=== PATIENT | female | born 1955 | race Caucasian/White ===

== ENCOUNTER → 2018-03-20 | Outpatient (CLI) | payer MEDICAID ==
--- NOTE | 2018-03-20 12:32 | XR ---
EXAMINATION TYPE: XR chest 2V DATE OF EXAM: 03/20/2018 COMPARISON: NONE HISTORY: Shortness of breath TECHNIQUE: Frontal and lateral views of the chest are obtained. FINDINGS: There is no focal air space opacity, pleural effusion, or pneumothorax seen. The cardiac silhouette size is within normal limits. The osseous structures are intact. Focal sclerosis is ques tioned of a pedicle of a lower thoracic vertebrae aren't on the lateral image. Slight pectus excavatu m deformity of the inferior sternum/psych void creates shadowing over the right middle lobe on the fr ontal view. IMPRESSION: 1. No acute cardiopulmonary process. 2. Slight sclerosis of the posterior lower thoracic pedicle that is nonspecific. Bone scan could eval uate for focal uptake.
== END | disposition home or self-care (01) ==
LOC: RADXRMAIN 12:05
PROVIDERS: ATTEND Family Medicine
DX: R06.2 Wheezing (principal)
CPT/HCPCS: 71046

== ENCOUNTER 2018-04-07 07:59 | Day surgery (SDC) | payer MEDICAID ==
[2018-04-04 12:05] VITALS: BMI 23.8
[~2018-04-07 07:59] MED LIST: LACTATED RINGERS 1,000 ML IV SCH
[2018-04-07 08:44] VITALS: RESP 18; TEMP 98.4
[2018-04-07] MEDS ORDERED: LIDOCAINE 1% 20 ML VIAL (10MG/ML) FOR IV START INTRADERMA ONE (08:48)
[2018-04-07] MEDS ORDERED: LIDOCAINE 1% INJ 10MG/ML (20 ML MDV) ONE (09:30)
[2018-04-07] MEDS ORDERED: PROPOFOL 10 MG/ML 20 ML VIAL IV ONE (09:30)
[2018-04-07 09:51] VITALS: PULSE 80
--- NOTE | 2018-04-07 10:01 | P.PCN ---
Date of Procedure: 04/07/18 Procedure(s) Performed: BRIEF HISTORY: Patient is a 62-year-old pleasant female, scheduled for an elective colonoscopy as a part of evaluation of intermittent rectal bleeding for the last 2 month duration. PROCEDURE PERFORMED: Colonoscopy With biopsy PREOPERATIVE DIAGNOSIS: Intermittent rectal bleeding of 2 months duration IV sedation per Anesthesia. PROCEDURE: After informed consent was obtained, the patient, was brought into the endoscopy unit. IV sedation was administered by Anesthesia under continuous monitoring. Digital rectal examination was normal. Initially the Olympus CF- 160 flexible video colonoscope was then inserted in the rectum, gradually advanced into the cecum without any difficulty. Careful examination was performed as the scope was gradually being withdrawn. Ileocecal valve and the appendiceal orifice were visualized and appeared normal. Prep was excellent. Mucosa of the cecum, ascending colon, transverse colon, descending colon appeared normal. There was mild mucosal erythema with granularity noted in the sigmoid colon and proximal rectum at 15-30 cm from the anal verge and multiple biopsies were done from this area. The distal rectum appeared normal. Retroflexion was performed in the rectum and no lesions were seen. The patient tolerated the procedure well. IMPRESSION: Mild colitis involving the sigmoid colon and proximal rectum with mucosal erythema and some friability status post biopsies to evaluate for inflammatory bowel disease Rest of the colon appeared normal RECOMMENDATIONS: Findings of this examination were discussed with the patient as well as a family. She was advised to follow with the biopsy results. She' ll be seen in the office in 2 weeks.
[2018-04-07 10:09] VITALS: BP 125/73
== END 2018-04-07 10:27 | disposition home or self-care (01) ==
LOC: ORWHC2ENDO 07:59
PROVIDERS: ATTEND Internal Medicine Gastroenterology
DX: K52.9 Noninfective gastroenteritis and colitis, unspecified (principal); K62.5 Hemorrhage of anus and rectum; E78.5 Hyperlipidemia, unspecified; F17.200 Nicotine dependence, unspecified, uncomplicated; M79.7 Fibromyalgia; K21.9 Gastro-esophageal reflux disease without esophagitis; Z79.1 Long term (current) use of non-steroidal anti-inflammatories (NSAID); Z79.899 Other long term (current) drug therapy; Z88.8 Allergy status to other drugs, medicaments and biological substances; Z88.6 Allergy status to analgesic agent; Z79.891 Long term (current) use of opiate analgesic
CPT/HCPCS: 88305; 45380; J2001; J2704

== ENCOUNTER → 2018-09-08 | Outpatient (CLI) | payer SELFPAY ==
[2018-09-08 07:25] LABS: Albumin 3.5 g/dL (3.5-5.0); Anion Gap 7 mmol/L; Carbon Dioxide 29 mmol/L (22-30); Chloride 99 mmol/L (98-107); Glucose 109 mg/dL (74-99); Potassium 3.9 mmol/L (3.5-5.1); Sodium 135 mmol/L (137-145); Total Protein 6.2 g/dL (6.3-8.2)
[2018-09-08 07:26] LABS: ALT 19 U/L (9-52); AST 14 U/L (14-36); Alkaline Phosphatase 85 U/L (38-126); Blood Urea Nitrogen 15 mg/dL (7-17); Calcium 8.7 mg/dL (8.4-10.2); Total Bilirubin 0.6 mg/dL (0.2-1.3)
[2018-09-08 07:28] LABS: Anisocytosis Slight; HCT 38.7 % (34.0-46.0); HGB 11.6 gm/dL (11.4-16.0); Hypochromasia Slight; MCH 25.5 pg (25.0-35.0); MCV 84.8 fL (80.0-100.0); Mean Platelet Volume 6.2; Platelet Count 411 k/uL (150-450); RBC 4.56 m/uL (3.80-5.40); RDW 16.1 % (11.5-15.5); WBC 9.2 k/uL (3.8-10.6)
[2018-09-08 09:53] LABS: Erythrocyte Sedimentation Rate 23 mm/hr (0-20)
--- NOTE | 2018-09-08 15:54 | CT ---
EXAMINATION TYPE: CT abdomen pelvis w con DATE OF EXAM: 09/08/2018 COMPARISON: 09/23/2009 INDICATION: Ulcerative rectosigmoiditis, blood in stool DLP: 920 mGycm, Automated exposure control for dose reduction was used. CONTRAST: 100 mL of Isovue 300. Study performed with Oral Contrast TECHNIQUE: Axial images were obtained from above the diaphragm to the pubic rami in the axial plane a t 5 mm thick sections. Reconstructed images are reviewed on the computer in the coronal plane. FINDINGS: Limited CT sections are obtained the lung bases. The lung bases are clear. CT ABDOMEN: Liver: Multiple scattered hypodensities are within the liver compatible with cysts. Spleen: Normal Pancreas: Normal Adrenal glands: There is some minimal thickening of the left adrenal gland compared to the right is 0 .9 cm. Gallbladder: Normal Kidneys: No masses are evident. No hydronephrosis is present. No cysts are present. Delayed images were obtained through the kidneys, which remain unremarkable. Aorta: Vascular calcification is within the aorta. Inferior vena cava: Normal. CT PELVIS: There is a suggestion of mild wall thickening within fecal debris filled descending colon. Descending colon appears prominent. Fecal debris is also within the ascending and transverse colon wall thicken ing. Sigmoid colon has a caliber. There may be some inflammatory change adjacent to the mid sigmoid c olon. Series 3 images 65 through 73. Appendix: Not visualized. No suspicious inflammatory changes or dilated tubular structures are eviden t. Urinary bladder: Normal. Genitourinary structures: Uterus and adnexal regions appear within normal limits. Osseous structures: No suspicious lytic or sclerotic lesions. Some pubic symphysitis is not excluded. Degenerative disc changes are at the L5-S1 level. IMPRESSIONS: 1. Prominent fecal debris filled descending colon with some mild wall thickening. Correlate for coli tis. 2. There are some inflammatory changes adjacent to the mid sigmoid colon. Consider acute diverticulit is within the differential. No abscess formation is evident. No free air is present. 3. Hepatic cysts. 4. Mild thickening of the left adrenal gland.
== END | disposition home or self-care (01) ==
LOC: RADCTMAIN 06:46
DX: K76.89 Other specified diseases of liver (principal); K51.30 Ulcerative (chronic) rectosigmoiditis without complications
CPT/HCPCS: 80053; 85652; 85027; 86140; 83993; 74177; 36415; Q9967

== ENCOUNTER → 2018-12-19 | Outpatient (CLI) | payer MEDICAID ==
[2018-12-19 11:51] LABS: Anisocytosis Slight; HCT 37.4 % (34.0-46.0); HGB 11.6 gm/dL (11.4-16.0); Hypochromasia Slight; MCH 26.3 pg (25.0-35.0); MCHC 31.1 g/dL (31.0-37.0); MCV 84.6 fL (80.0-100.0); Mean Platelet Volume 6.8; Platelet Count 290 k/uL (150-450); RBC 4.43 m/uL (3.80-5.40); RDW 16.7 % (11.5-15.5); WBC 11.3 k/uL (3.8-10.6)
[2018-12-19 14:40] LABS: Erythrocyte Sedimentation Rate 25 mm/hr (0-20)
== END ==
LOC: LABWHC1 10:18
PROVIDERS: ATTEND Internal Medicine Gastroenterology
DX: K51.30 Ulcerative (chronic) rectosigmoiditis without complications (principal)
CPT/HCPCS: 36415; 83993; 85027; 85652; 86140

== ENCOUNTER → 2019-01-31 | Outpatient (CLI) | payer MEDICAID ==
[2019-01-31 15:41] LABS: Basophils % (A) 0 %; Eosinophils % (A) 1 %; HCT 32.6 % (34.0-46.0); Hypochromasia Marked; Lymphocytes # (A) 0.6 k/uL (1.0-4.8); Lymphocytes % (A) 9 %; MCH 26.6 pg (25.0-35.0); MCHC 30.5 g/dL (31.0-37.0); MCV 87.1 fL (80.0-100.0); Mean Platelet Volume 6.8; Monocytes # (A) 0.2 k/uL (0-1.0); Monocytes % (A) 3 %; Neutrophils # (A) 5.3 k/uL (1.3-7.7); Neutrophils % (A) 87 %; Platelet Count 398 k/uL (150-450); RBC 3.74 m/uL (3.80-5.40); RDW 15.5 % (11.5-15.5); WBC 6.1 k/uL (3.8-10.6)
[2019-02-01 01:16] LABS: Hepatitis C IgG Antibody Reactive (Non-Reactive)
[2019-02-01 03:25] LABS: Albumin 3.7 g/dL (3.80-4.90); Albumin/Globulin Ratio 2.31 (1.60-3.17); Anion Gap 8.8 mmol/L (4.00-12.00); C Reactive Protein 0.9 mg/dL (0.0-0.8); Calcium 8.6 mg/dL (8.7-10.3); Carbon Dioxide 23.2 mmol/L (21.6-31.8); Globulin 1.6 g/dL (1.6-3.3); Potassium 4.2 mmol/L (3.5-5.5); Total Bilirubin 0.2 mg/dL (0.3-1.2); Total Protein 5.3 g/dL (6.2-8.2)
== END | disposition home or self-care (01) ==
LOC: LABWHC1 14:51
PROVIDERS: ATTEND Internal Medicine Gastroenterology
DX: K51.30 Ulcerative (chronic) rectosigmoiditis without complications (principal)
CPT/HCPCS: 36415; 80053; 85025; 86140; 86480; 86704; 86803; 87340; 87521

== ENCOUNTER 2019-09-11 23:09 | Inpatient (IN) | payer MEDICARE, BC ==
--- NOTE | 2019-09-12 00:08 | ED ---
Recheck HPI - General Chief Complaint: Recheck/Abnormal Lab/Rx Stated Complaint: low hemoglobin Time Seen by Provider: 09/11/19 23:23 Source: patient, EMS Mode of arrival: EMS Limitations: no limitations - History of Present Illness Initial Comments: This patient is a 64-year-old woman transferred here from [facility], for further evaluation and treatment of anemia and GI bleeding. The patient states that her mess cook had sent her to have some lab testing in the afternoon. She states she received a phone call few hours later telling her that she was anemic, with a hemoglobin of 6.2. The patient was directed to go to the local emergency department at [facility], where she was seen, the hemoglobin was rechecked and again found to be low. The patient had transfusion of 1 unit packed red blood cells, and transferred here. Patient also found to have Hemoccult positive stool. Further history reveals that the patient is not having any chest pain, abdominal pain, dyspnea, diaphoresis, palpitations, lightheadedness or syncope. She denies orthostatic symptoms. MD Complaint: abnormal lab -: hour(s) Returns Today for: Called Because of Abnormal Lab/Test Symptoms Since Prior Visit: no new symptoms Context: called for abnormal lab result Associated Symptoms: other (Fatigue) - Related Data Home Medications Medication Instructions Recorded Confirmed Atorvastatin [Lipitor] 10 mg PO HS 04/04/18 04/07/18 DULoxetine HCL [Cymbalta] 60 mg PO QAM 04/04/18 04/07/18 HYDROcodone/APAP 5-325MG [[place] 1 tab PO BID 04/04/18 04/07/18 5-325] Lansoprazole [Prevacid] 30 mg PO BID 04/04/18 04/07/18 Naproxen 500 mg PO BID 04/04/18 04/07/18 Ziprasidone [Geodon] 80 mg PO HS 04/04/18 04/07/18 buPROPion HCL [Wellbutrin XL] 300 mg PO QAM 04/04/18 04/07/18 Allergies Allergy/AdvReac Type Severity Reaction Status Date / Time lamotrigine [From Lamictal] Allergy Severe Jose Luis Verified 04/07/18 08:34 Brandt Syndrome celecoxib [From Celebrex] Allergy Nausea & Verified 04/07/18 08:34 Vomiting citalopram [From Celexa] Allergy Nausea & Verified 04/07/18 08:34 Vomiting Review of Systems ROS Statement: Those systems with pertinent positive or pertinent negative responses have been documented in the HPI. ROS Other: All systems not noted in ROS Statement are negative. Constitutional: Denies: fever, chills, weakness Respiratory: Denies: cough, dyspnea Cardiovascular: Denies: chest pain, palpitations, orthopnea, edema, syncope Gastrointestinal: Reports: constipation. Denies: abdominal pain, nausea, vom iting, diarrhea, melena, hematochezia Genitourinary: Denies: dysuria, hematuria Musculoskeletal: Denies: back pain Skin: Denies: rash Neurological: Denies: headache, weakness Hematological/Lymphatic: Denies: easy bleeding Past Medical History Past Medical History: Eye Disorder, Fibromyalgia, GERD/Reflux, Hyperlipidemia, Osteoarthritis (OA), Pneumonia Additional Past Medical History / Comment(s): Dry eyes, current rectal bleeding,collitis. History of Any Multi-Drug Resistant Organisms: None Reported Past Surgical History: Breast Surgery, Orthopedic Surgery, Tubal Ligation Additional Past Surgical History / Comment(s): Bilateral breast lumpectomies, bilateral carpal tunnel, left hand surgery. Past Anesthesia/Blood Transfusion Reactions: No Reported Reaction Past Psychological History: Bipolar, Depression Smoking Status: Current every day smoker Past Alcohol Use History: Rare Past Drug Use History: None Reported - Past Family History Mother Family Medical History: No Reported History Father Family Medical History: Cancer Additional Family Medical History / Comment(s): Throat cancer. General Exam Limitations: no limitations General appearance: alert, in no apparent distress Head exam: Present: atraumatic, normocephalic Eye exam: Present: normal appearance. Absent: scleral icterus, conjunctival injection ENT exam: Present: normal oropharynx Respiratory exam: Present: normal lung sounds bilaterally. Absent: respiratory distress, wheezes, rales, rhonchi, stridor Cardiovascular Exam: Present: regular rate, normal rhythm, normal heart sounds. Absent: systolic murmur, diastolic murmur, rubs, gallop GI/Abdominal exam: Present: soft. Absent: distended, tenderness, guarding, rebound, rigid Extremities exam: Present: normal inspection, normal capillary refill. Absent: pedal edema, calf tenderness Back exam: Present: normal inspection. Absent: CVA tenderness (R), CVA tenderness (L) Neurological exam: Present: alert Skin exam: Present: warm, dry, intact, normal color. Absent: rash Course Vital Signs 09/11/19 09/12/19 23:23 01:40 Temperature 99.1 F Pulse Rate 98 56 L Respiratory 18 16 Rate Blood Pressure 147/93 133/80 O2 Sat by Pulse 97 98 Oximetry Disposition Clinical Impression: Anemia, GI bleeding Disposition: ADMITTED IP TO THIS HOSP Condition: Fair Is patient prescribed a controlled substance at d/c from ED?: No Referrals: Gail Duvall MD [Primary Care Provider] - 1-2 days
[2019-09-12] MEDS ORDERED: NALOXONE 0.4 MG/ML 1 ML VIAL IV PRN (01:52)
[2019-09-12] MEDS ORDERED: ONDANSETRON 4 MG/2 ML VIAL IVP PRN (01:52)
[2019-09-12] MEDS ORDERED: ACETAMINOPHEN TAB 325 MG TAB PO PRN (01:52)
[2019-09-12] MEDS: SODIUM CHLORIDE 0.9% 1,000 ML IV SCH ×3 (02:24→22:51)
[2019-09-12 03:26] LABS: Anisocytosis Moderate; HGB 7.2 gm/dL (11.4-16.0); Hypochromasia Marked; MCH 19.3 pg (25.0-35.0); MCHC 27.8 g/dL (31.0-37.0); MCV 69.4 fL (80.0-100.0); Mean Platelet Volume 6.6; Microcytosis Marked; Platelet Count 420 k/uL (150-450); Poikilocytosis Moderate; RBC 3.75 m/uL (3.80-5.40); RDW 21.5 % (11.5-15.5); WBC 6.7 k/uL (3.8-10.6)
[2019-09-12 03:38] VITALS: RESP 18
[2019-09-12 07:03] LABS: Anisocytosis Moderate; HCT 26.9 % (34.0-46.0); HGB 7.4 gm/dL (11.4-16.0); Hypochromasia Marked; MCH 19.4 pg (25.0-35.0); MCHC 27.4 g/dL (31.0-37.0); MCV 70.8 fL (80.0-100.0); Mean Platelet Volume 6.7; Microcytosis Marked; Platelet Count 439 k/uL (150-450); Poikilocytosis Moderate; RBC 3.81 m/uL (3.80-5.40); RDW 21.4 % (11.5-15.5); WBC 6.5 k/uL (3.8-10.6)
[2019-09-12] MEDS ORDERED: HYDROcodone/APAP 5-325MG 1 EACH TAB PO PRN (08:30)
[2019-09-12] MEDS ORDERED: CYCLOBENZAPRINE 10 MG TAB PO PRN (08:30)
[2019-09-12] MEDS: DULoxetine HCL 60 MG CAPSULE.DR PO SCH ×2 (08:51→20:55)
[2019-09-12] MEDS: PANTOPRAZOLE 40 MG/10 ML VIAL IV SCH (08:52)
[2019-09-12] MEDS ORDERED: NON FORMULARY DRUG (Lansoprazole [Prevacid] 30 MG) PO SCH (09:00)
[2019-09-12 09:48] LABS: ALT 10 U/L (4-34); AST 18 U/L (14-36); African American GFR (CKD) >90 (>60 ml/min/1.73 sqM); Albumin 3.3 g/dL (3.5-5.0); Alkaline Phosphatase 56 U/L (38-126); Anion Gap 6 mmol/L; Blood Urea Nitrogen 14 mg/dL (7-17); Calcium 8.5 mg/dL (8.4-10.2); Carbon Dioxide 25 mmol/L (22-30); Chloride 106 mmol/L (98-107); Glucose 88 mg/dL (74-99); Non-African American GFR(CKD) >90 (>60 ml/min/1.73 sqM); Potassium 4.5 mmol/L (3.5-5.1); Sodium 137 mmol/L (137-145); Total Bilirubin 0.5 mg/dL (0.2-1.3)
[2019-09-12] MEDS: buPROPion XL 300 MG TAB.ER.24H PO SCH (10:08)
[2019-09-12] MEDS: ZIPRASIDONE 60 MG CAP PO SCH ×2 (10:08→20:55)
--- NOTE | 2019-09-12 10:48 | P.HPIM ---
History of Present Illness H&P Date: 09/12/19 Chief Complaint: Low hemoglobin This is a 64-year-old female patient of Dr. Duvall. Patient presented with abnormal lab values. Patient reports that she's been having increased fatigue over the past few months and a feeling of heart palpitations so she was seen by her malt house supervisor who Center for lab testing and she received a call that her hemoglobin was low and she proceeded to [facility]. Patient received 1 unit PRBCs at [place] and transfer to [facility] for further evaluation. Patient states that approximately 1 year ago she underwent scope wi th Dr. Liu was diagnosed with ulcerative colitis. Patient denies any recent episodes of diarrhea does report some abdominal cramping. Patient states she did have constipation occurring over the past week but did have normal BMs this a.m. Additional medical history includes fibromyalgia, GERD, hyperlipidemia, osteoporosis, pneumonia, bipolar, depression and current every day smoker. At this time patient denies chest pain or shortness breath. Patient denies nausea vomiting or diarrhea. Denies urinary burning or frequency. Current hemoglobin level 7.4. GI services have a consulted Review of Systems Please refer to HPI otherwise unremarkable Past Medical History Past Medical History: Eye Disorder, Fibromyalgia, GERD/Reflux, Hyperlipidemia, Osteoarthritis (OA), Pneumonia Additional Past Medical History / Comment(s): Dry eyes, current rectal bleeding,collitis. History of Any Multi-Drug Resistant Organisms: None Reported Past Surgical History: Breast Surgery, Orthopedic Surgery, Tubal Ligation Additional Past Surgical History / Comment(s): Bilateral breast lumpectomies, bilateral carpal tunnel, left hand surgery. Past Anesthesia/Blood Transfusion Reactions: No Reported Reaction Past Psychological History: Bipolar, Depression Smoking Status: Current every day smoker Past Alcohol Use History: Rare Additional Past Alcohol Use History / Comment(s): Has been smoking 50 yrs, 1 PPD, down to less than 1 PPD now. Past Drug Use History: None Reported - Past Family History Mother Family Medical History: Dementia Father Family Medical History: Cancer Additional Family Medical History / Comment(s): Throat cancer. Medications and Allergies Home Medications Medication Instructions Recorded Confirmed Type Atorvastatin [Lipitor] 10 mg PO HS 04/04/18 09/12/19 History DULoxetine HCL [Cymbalta] 60 mg PO BID 04/04/18 09/12/19 History HYDROcodone/APAP 5-325MG [[place] 1 tab PO BID PRN 04/04/18 09/12/19 History 5-325] Lansoprazole [Prevacid] 30 mg PO BID 04/04/18 09/12/19 History buPROPion HCL [Wellbutrin XL] 300 mg PO QAM 04/04/18 09/12/19 History Adalimumab [Humira Pediatric] 40 mg SQ Q14D 09/12/19 09/12/19 History Balsalazide Disodium 2,250 mg PO TID 09/12/19 09/12/19 History Cyclobenzaprine [Flexeril] 10 mg PO DAILY PRN 09/12/19 09/12/19 History Dicyclomine [Bentyl] 10 mg PO TID 09/12/19 09/12/19 History Ziprasidone [Geodon] 60 mg PO BID 09/12/19 09/12/19 History Allergies Allergy/AdvReac Type Severity Reaction Status Date / Time lamotrigine [From Lamictal] Allergy Severe Jose Luis Verified 09/12/19 08:01 Brandt Syndrome celecoxib [From Celebrex] Allergy Nausea & Verified 09/12/19 08:01 Vomiting citalopram [From Celexa] Allergy Nausea & Verified 09/12/19 08:01 Vomiting Physical Exam Vitals: Vital Signs Temp Pulse Pulse Resp BP BP Pulse Ox 09/12/19 08:45 98.6 F 98 18 130/76 95 09/12/19 03:10 98.6 F 96 18 147/77 96 09/12/19 01:40 56 L 16 133/80 98 09/11/19 23:23 99.1 F 98 18 147/93 97 Intake and Output 09/11/19 09/12/19 09/12/19 22:59 06:59 14:59 Intake Total 270 Balance 270 Intake: Intake, IV Titration 270 Amount Sodium Chloride 0.9% 1, 270 000 ml @ 90 mls/hr IV . Q11H7M [facility] Rx#:[id number] Other: Voiding Method Toilet # Voids 1 Weight 53 kg Head normocephalic Neck supple Lungs clear to auscultation bilaterally no wheezing or crackles Heart regular rate and rhythm S1-S2, no rub or gallop Abdomen is soft nontender nondistended positive bowel sounds no hepatosplenomegaly Extremities no edema Neuro alert and orientated to 3 Results CBC & Chem 7: 09/12/19 06:32 09/12/19 08:51 Labs: Abnormal Lab Results - Last 24 Hours (Table) 09/12/19 09/12/19 09/12/19 Range/Units 02:33 06:32 08:51 RBC 3.75 L (3.80-5.40) m/uL Hgb 7.2 L 7.4 L (11.4-16.0) gm/dL Hct 26.0 L 26.9 L (34.0-46.0) % MCV 69.4 L 70.8 L (80.0-100.0) fL MCH 19.3 L 19.4 L (25.0-35.0) pg MCHC 27.8 L 27.4 L (31.0-37.0) g/dL RDW 21.5 H 21.4 H (11.5-15.5) % Total Protein 6.0 L (6.3-8.2) g/dL Albumin 3.3 L (3.5-5.0) g/dL Thrombosis Risk Factor Assmnt - Choose All That Apply Any of the Below Risk Factors Present?: No Other Risk Factors: Yes Each Risk Factor Represents 2 Points: Age 61-74 years Other congenital or acquired thrombophilia - If yes, enter type in comment: No Thrombosis Risk Factor Assessment Total Risk Factor Score: 2 Thrombosis Risk Factor Assessment Level: Low Risk Assessment and Plan Assessment: 1. Anemia secondary to GI bleed with positive stool occult. She received 1 unit PRBCs for hemoglobin is 6.2 at [facility]. GI services have been consulted. Current hemoglobin level 7.4. Maintain on IV Protonix 2. History of ulcerative colitis. Patient does follow with GI services previously underwent colonoscopy in January 2018 3. History of bipolar depression. Home medications resumed 4. History of fibromyalgia 5. History of GERD 6. History of pneumonia 7. History of nicotine dependence. Patient educated greater then 3 min on smoking cessastion. Nicotine patch ordered DVT prophylaxis SCDs due to positive occult anemia. GI Proflex Protonix Time with Patient: Greater than 30 (Greater than 60% of the total time spent in counseling and coordination of care. I performed an examination of the patient and discussed their management with the Nurse Practitioner. I have reviewed the Nurse Practitioner's notes and agree with the documented findings and plan of care)
[2019-09-12 14:27] LABS: Anisocytosis Moderate; HCT 25.9 % (34.0-46.0); HGB 7.2 gm/dL (11.4-16.0); Hypochromasia Marked; MCH 19.9 pg (25.0-35.0); MCV 70.9 fL (80.0-100.0); Mean Platelet Volume 7.3; Microcytosis Marked; Platelet Count 419 k/uL (150-450); Poikilocytosis Moderate; RBC 3.65 m/uL (3.80-5.40); RDW 21.6 % (11.5-15.5); WBC 5.3 k/uL (3.8-10.6)
[2019-09-12] MEDS ORDERED: HUMIRA 40 MG/0.4 ML SQ SCH (18:00)
[2019-09-12 20:04] LABS: Anisocytosis Moderate; HCT 26.9 % (34.0-46.0); HGB 7.4 gm/dL (11.4-16.0); Hypochromasia Marked; MCH 19.9 pg (25.0-35.0); MCHC 27.5 g/dL (31.0-37.0); MCV 72.2 fL (80.0-100.0); Mean Platelet Volume 7.1; Microcytosis Marked; Platelet Count 437 k/uL (150-450); Poikilocytosis Moderate; RBC 3.73 m/uL (3.80-5.40); RDW 21.6 % (11.5-15.5); WBC 6.6 k/uL (3.8-10.6)
[2019-09-12] MEDS ORDERED: ATORVASTATIN 10 MG TAB PO SCH (21:00)
--- NOTE | 2019-09-13 05:25 | CONS ---
CONSULTATION DATE OF SERVICE: 09/12/2019 REASON FOR CONSULTATION: Severe symptomatic anemia and history of ulcerative colitis. HISTORY OF PRESENTING ILLNESS: The patient is a 64-year-old pleasant white female admitted to the hospital because of severe symptomatic anemia with a hemoglobin of 7 g/dL and received one unit of PRBC transfusion. Patient is known to me from her previous office visit. She was diagnosed with ulcerative colitis approximately a year ago and she was steroid dependent and hence she was started on Humira injections in May of this year. The patient has been taking Humira every 2 weeks, the last dose was today. She has been steroid dependent in the past, but she has been off the steroids since May of this year. She was seen by her control engineer because of palpitations and routine labs on outpatient basis showed a hemoglobin that was low and she went to [facility] where she had one unit of blood transfusion. She denies any rectal bleeding or melena. She has been having some issues with constipation and lower abdominal pain. Denies any nausea, vomiting. Her last hemoglobin was 7.4 g/dL. PAST MEDICAL HISTORY: Significant for ulcerative colitis diagnosed a year ago, history of gastroesophageal reflux disease, hypertension, hyperlipidemia, degenerative joint disease. PAST SURGICAL HISTORY: Bilateral breast lumpectomies, bilateral carpal tunnel surgery, colonoscopy in April of 2018 that showed left-sided colitis, tubal ligation. SOCIAL HISTORY: Chronic smoker. No alcohol use. FAMILY HISTORY: Mother has dementia. Father had throat cancer. MEDICATIONS: Medications at home include: Lipitor, Cymbalta, [place], Prevacid, Wellbutrin, Humira, Flexeril, Bentyl, and Geodon. ALLERGIES: Allergies to LAMICTAL, CELEBREX, and CELEXA. REVIEW OF SYSTEMS: CARDIOPULMONARY: No chest pain or shortness of breath. GENITOURINARY: No dysuria or hematuria. MUSCULOSKELETAL: Unremarkable. SKIN: Unremarkable. ENDOCRINE: Unremarkable. PSYCHIATRY: Anxiety, depression. NEUROLOGY: Unremarkable. ENT/VISION: Unremarkable. CONSTITUTIONAL: Weight loss of 20 pounds. No fever, chills, night sweats. PHYSICAL EXAMINATION: On physical exam, she appears comfortable. No apparent distress. VITAL SIGNS: Stable. Blood pressure is 124/75, pulse rate 92, temperature 98.1. HEENT EXAMINATION: Unremarkable. Conjunctivae pink. Sclerae anicteric. Oral cavity no lesions. NECK: No JVD or lymph node enlargement. CHEST: Was clear to auscultation. HEART: Regular rate and rhythm. ABDOMEN: Soft. Bowel sounds are positive. No organomegaly. EXTREMITIES: No pedal edema. SKIN: No rashes. NEURO: Alert and oriented x3. No focal deficits. LABS: Labs from today: WBC 5.3, hemoglobin 7.2, platelets 419, MCV 70.9. ALT, AST, T- bilirubin and alkaline phosphatase are within normal limits. BUN and creatinine are within normal limits. IMPRESSION: 1. This is a lady with history of ulcerative colitis diagnosed approximately a year ago. She has been maintained on Humira 40 mg every 2 weeks and remains in clinical remission. Her last colonoscopy in April of 2018 showed evidence of mild left- sided colitis. The patient has been off steroids for almost 6 months. 2. Symptomatic anemia with a hemoglobin of 6.5 requiring one unit of blood transfusion. Today hemoglobin is 7.4 and stable. She has severe microcytosis consistent with iron deficiency anemia most likely secondary to occult gastrointestinal blood loss. She denies any upper gastrointestinal symptoms. No recent NSAID use or prior history of peptic ulcer disease. RECOMMENDATIONS: 1. Agree with PRBC transfusion. 2. Continue with Humira 40 mg every 2 weeks. 3. Start on iron supplementation. 4. Monitor CBC on a close basis. 5. No plans on any endoscopy intervention at the present time. 6. If her hemoglobin is stable, she can be discharged home with an outpatient followup and possible upper endoscopy based on her clinical course. Thank you for this consultation. MMODL / IJN: [id number] /
[2019-09-13 06:54] LABS: Anisocytosis Moderate; HCT 27.4 % (34.0-46.0); HGB 7.8 gm/dL (11.4-16.0); Hypochromasia Marked; MCH 20.4 pg (25.0-35.0); MCHC 28.3 g/dL (31.0-37.0); MCV 71.9 fL (80.0-100.0); Mean Platelet Volume 6.9; Microcytosis Marked; Platelet Count 434 k/uL (150-450); Poikilocytosis Moderate; RBC 3.81 m/uL (3.80-5.40); WBC 5.1 k/uL (3.8-10.6)
[2019-09-13 07:09] LABS: ALT 8 U/L (4-34); AST 14 U/L (14-36); African American GFR (CKD) >90 (>60 ml/min/1.73 sqM); Albumin 2.8 g/dL (3.5-5.0); Alkaline Phosphatase 52 U/L (38-126); Anion Gap 4 mmol/L; Blood Urea Nitrogen 10 mg/dL (7-17); Calcium 8.3 mg/dL (8.4-10.2); Carbon Dioxide 25 mmol/L (22-30); Chloride 109 mmol/L (98-107); Glucose 84 mg/dL (74-99); Non-African American GFR(CKD) >90 (>60 ml/min/1.73 sqM); Sodium 138 mmol/L (137-145); Total Bilirubin 0.4 mg/dL (0.2-1.3); Total Protein 5.4 g/dL (6.3-8.2)
[2019-09-13] MEDS ORDERED: NICOTINE 14MG/24HR PATCH TRANSDERM SCH (09:00)
[2019-09-13 09:01] LABS: Lymphocytes # (M) 1.28 k/uL (1.0-4.8); Monocytes # (M) 0.56 k/uL (0-1.0); Neutrophils # (M) 3.16 k/uL (1.3-7.7); Neutrophils % (M) 62 %; Nucleated Red Blood Cells 0 /100 WBC (0-0); Total Cells Counted 100
[2019-09-13 09:06] LABS: Polychromasia Present
[2019-09-13] MEDS: PANTOPRAZOLE 40 MG/10 ML VIAL IV SCH (09:17)
[2019-09-13] MEDS: DULoxetine HCL 60 MG CAPSULE.DR PO SCH (09:17)
[2019-09-13] MEDS: buPROPion XL 300 MG TAB.ER.24H PO SCH (09:18)
[2019-09-13] MEDS: ZIPRASIDONE 60 MG CAP PO SCH (09:18)
[2019-09-13] MEDS ORDERED: SODIUM FERRIC GLUCONAT-SUCROSE 125 MG in SODIUM CHLORIDE 0.9% 100 ML IVPB ONE (12:00)
[2019-09-13 13:50] VITALS: BMI 18.7
--- NOTE | 2019-09-13 14:19 | P.DS ---
Providers Date of admission: 09/12/19 01:52 Expected date of discharge: 09/13/19 Attending physician: Paulino Hurtado Consults: 09/12/19 01:53 Consult Physician Routine Consulting Provider: Pilar Castro Consult Reason/Comments: GI Bleeding. History of UC Do you want consulting provider notified?: Yes Primary care physician: Gail Duvall [facility] Course: Discharge diagnosis 1. Anemia secondary to GI bleed with positive stool occult. She received 1 unit PRBCs for hemoglobin is 6.2 at [facility]. GI services have been consulted. Current hemoglobin level 7.4. Maintain on IV Protonix. Per GI services no plans for endoscopic intervention at this time patient may be discharged home to possible outpatient endoscopy exam based on her clinical course. Hemoglobin 7.8. Patient received IV iron prior to discharge. Patient will be discharged on ferrous sulfate. 2. History of ulcerative colitis. Patient does follow with GI services pre viously underwent colonoscopy in January 2018. Per GI services continue [facility] follow-up outpatient for further management 3. History of bipolar depression. Home medications resumed 4. History of fibromyalgia 5. History of GERD 6. History of pneumonia 7. History of nicotine dependence. Patient educated greater then 3 min on smoking cessastion. Nicotine patch ordered Hospital course This is a 64-year-old female patient of Dr. Duvall. Patient presented with abnormal lab values. Patient reports that she's been having increased fatigue over the past few months and a feeling of heart palpitations so she was seen by her geoscience technician who Center for lab testing and she received a call that her hemoglobin was low and she proceeded to [facility]. Patient received 1 unit PRBCs at [place] and transfer to [facility] for further evaluation. Patient states that approximately 1 year ago she underwent scope with Dr. Liu was diagnosed with ulcerative colitis. Patient denies any recent episodes of diarrhea does report some abdominal cramping. Patient states she did have constipation occurring over the past week but did have normal BMs this a.m. Additional medical history includes fibromyalgia, GERD, hyperlipidemia, osteoporosis, pneumonia, bipolar, depression and current every day smoker. At this time patient denies chest pain or shortness breath. Patient denies nausea vomiting or diarrhea. Denies urinary burning or frequency. Current hemoglobin level 7.4. GI services have a consulted On 09/13/2019 patient is alert and oriented 3. Hemoglobin stable at 7.8. Patient was evaluated by GI services no plans for inpatient endoscopic exam at this time patient follow-up outpatient for further workup. Patient will receive IV iron prior to discharge and discharged on ferrous sulfate twice daily. At this time patient denies chest pain or shortness of breath. Patient reports no further signs of significant bleeding. Patient denies any urinary burning or frequency. Repeat CBC has been ordered for 4 days I performed an examination of the patient and discussed their management with the Nurse Practitioner. I have reviewed the Nurse Practitioner's notes and agree with the documented findings and plan of care Patient Condition at Discharge: Stable Plan - Discharge Summary Discharge Rx Participant: No New Discharge Prescriptions: New Ferrous Sulfate [Iron (65 MG Elemental)] 325 mg PO BID 30 Days #60 tab Continue Lansoprazole [Prevacid] 30 mg PO BID DULoxetine HCL [Cymbalta] 60 mg PO BID Atorvastatin [Lipitor] 10 mg PO HS buPROPion HCL [Wellbutrin XL] 300 mg PO QAM HYDROcodone/APAP 5-325MG [Rinard 5-325] 1 tab PO BID PRN PRN Reason: Pain Ziprasidone [Geodon] 60 mg PO BID Cyclobenzaprine [Flexeril] 10 mg PO DAILY PRN PRN Reason: Spasms Balsalazide Disodium 2,250 mg PO TID Dicyclomine [Bentyl] 10 mg PO TID Adalimumab [Humira Pediatric Crohn's] 40 mg SQ Q14D Discharge Medication List Atorvastatin [Lipitor] 10 mg PO HS 04/04/18 [History] DULoxetine HCL [Cymbalta] 60 mg PO BID 04/04/18 [History] HYDROcodone/APAP 5-325MG [Rinard 5-325] 1 tab PO BID PRN 04/04/18 [History] Lansoprazole [Prevacid] 30 mg PO BID 04/04/18 [History] buPROPion HCL [Wellbutrin XL] 300 mg PO QAM 04/04/18 [History] Adalimumab [Humira Pediatric Crohn's] 40 mg SQ Q14D 09/12/19 [History] Balsalazide Disodium 2,250 mg PO TID 09/12/19 [History] Cyclobenzaprine [Flexeril] 10 mg PO DAILY PRN 09/12/19 [History] Dicyclomine [Bentyl] 10 mg PO TID 09/12/19 [History] Ziprasidone [Geodon] 60 mg PO BID 09/12/19 [History] Ferrous Sulfate [Iron (65 MG Elemental)] 325 mg PO BID 30 Days #60 tab 09/13/19 [Rx] Follow up Appointment(s)/Referral(s): Gail Duvall MD [Primary Care Provider] - 1-2 days Pilar Castro MD [STAFF PHYSICIAN] - 1 Week Ambulatory/Diagnostic Orders: Complete Blood Count w/diff [LAB.AMB] Time Frame: 4 Days, Location: None Selected Activity/Diet/Wound Care/Special Instructions: Activity as tolerated Diet heart healthy Discharge Disposition: HOME SELF-CARE
[2019-09-13] MEDS: SODIUM CHLORIDE 0.9% 1,000 ML IV SCH (14:23)
[2019-09-13 15:09] VITALS: BP 130/75; PULSE 96; TEMP 98.1
[2019-09-13] MEDS ORDERED: BALSALAZIDE DISODIUM 750 MG CAPSULE PO SCH (16:00)
[2019-09-13] MEDS ORDERED: DICYCLOMINE 10 MG CAP PO SCH (16:00)
[2019-09-13] MEDS ORDERED: FERROUS SULFATE 325 MG TAB PO SCH (21:00)
--- NOTE | 2019-09-17 13:22 | CDI ---
Documentation Clarification Form Date: 09/17/2019 12:57:00 PM From: Annabelle Fall Phone: If you have a question about this query, please contact Imani Miranda, Laboratory Sampler at [phone] between 8am and 5pm. Admit Date: 09/12/2019 01:52:00 AM Patient Name: Jana Holloway Visit Number: [id number] Discharge Date: 09/13/2019 03:55:00 PM ATTENTION: The Clinical Documentation Specialists (CDI) and [facility] Coding Staff appreciate your assistance in clarifying documentation. Please respond to the clarification below the line at the bottom and electronically sign. The CDI & [facility] Coding staff will review the response and follow-up if needed. Please note: Queries are made part of the Legal Health Record. If you have any questions, please contact the author of this message via ITS. Dr. Paulino Hurtado History of Ulcerative colitis is documented in DCS. Left sided colitis documented in PN's. Patient has positive blood in stools. Please clarify if ulcerative colitis is cause of the hem + stools. Patient history/risk factors: Anemia with history of UC and blood in stool. Labs: hemoglobin 7.2 7.4 Medication: Humira In your professional opinion, can you please further specify the following, if known? UC causing blood in stool UC not related to blood in stool Any related complications Other, please specify Unable to determine UC causing blood in stool MTDD
--- NOTE | 2019-09-17 13:47 | CDI ---
Documentation Clarification Form Date: 09/17/2019 01:22:00 PM From: Annabelle Fall Phone: If you have a question about this query, please contact Imani Miranda [employer] Operating Engineer at [phone] between 8am and 5pm. Admit Date: 09/12/2019 01:52:00 AM Patient Name: Jana Holloway Visit Number: [id number] Discharge Date: 09/13/2019 03:55:00 PM ATTENTION: The Clinical Documentation Specialists (CDI) and [facility] Coding Staff appreciate your assistance in clarifying documentation. Please respond to the clarification below the line at the bottom and electronically sign. The CDI & [facility] Coding staff will review the response and follow-up if needed. Please note: Queries are made part of the Legal Health Record. If you have any questions, please contact the author of this message via ITS. Dr. Paulino Hurtado Anemia second to GI bleed is documented in H and P and DCS. Please clarify if the anemia is Acute or Chronic. History/Risk Factors: UC, blood in stool, anemia Hemoglobin: 7.2 7.4 Hematocrit: 26.0 Treatment: monitoring labs In order to capture the severity of condition, please clarify if anemia due to GI bleed is acute or chronic. Acute blood loss anemia Acute on chronic blood loss anemia Chronic blood loss anemia Unable to determine Other, please specify acute blood loss anemia MTDD
== END 2019-09-13 15:55 | disposition home or self-care (01) | DRG 386 ==
LOC: EC 23:09 → 3SCARD 09-12 01:52
PROVIDERS: ADMIT Internal Medicine; ATTEND Internal Medicine
DX: K51.511 Left sided colitis with rectal bleeding (principal); D62 Acute posthemorrhagic anemia; E78.5 Hyperlipidemia, unspecified; Z71.6 Tobacco abuse counseling; F17.210 Nicotine dependence, cigarettes, uncomplicated; K59.00 Constipation, unspecified; M79.7 Fibromyalgia; M81.0 Age-related osteoporosis without current pathological fracture; Z79.52 Long term (current) use of systemic steroids; Z79.899 Other long term (current) drug therapy; Z80.8 Family history of malignant neoplasm of other organs or systems; Z81.8 Family history of other mental and behavioral disorders; Z87.01 Personal history of pneumonia (recurrent); I10 Essential (primary) hypertension; Z88.8 Allergy status to other drugs, medicaments and biological substances; F31.9 Bipolar disorder, unspecified
CPT/HCPCS: 36415; 80048; 80053; 84439; 84443; 84450; 84460; 85025; 85027; 99285

== ENCOUNTER → 2019-09-11 | Outpatient (CLI) | payer MEDICARE, BC ==
[2019-09-11 13:11] LABS: Anisocytosis Moderate; Basophils # (A) 0.1 k/uL (0-0.2); Basophils % (A) 1 %; Eosinophils # (A) 0.1 k/uL (0-0.7); Eosinophils % (A) 2 %; HCT 25.3 % (34.0-46.0); Hypochromasia Marked; Lymphocytes # (A) 1.8 k/uL (1.0-4.8); Lymphocytes % (A) 30 %; MCH 18.1 pg (25.0-35.0); MCV 69.7 fL (80.0-100.0); Mean Platelet Volume 6.5; Microcytosis Marked; Monocytes # (A) 0.4 k/uL (0-1.0); Monocytes % (A) 6 %; Neutrophils # (A) 3.3 k/uL (1.3-7.7); Neutrophils % (A) 57 %; Platelet Count 530 k/uL (150-450); Poikilocytosis Slight; RBC 3.63 m/uL (3.80-5.40); RDW 20.1 % (11.5-15.5); WBC 5.9 k/uL (3.8-10.6)
[2019-09-11 13:29] LABS: HGB 6.6 gm/dL (11.4-16.0)
[2019-09-11 18:47] LABS: African American GFR (CKD) 105.4 (60.0-200.0); Anion Gap 5.4 mmol/L (4.00-12.00); Calcium 8.5 mg/dL (8.7-10.3); Carbon Dioxide 26.6 mmol/L (21.6-31.8); Non-African American GFR(CKD) 90.9 (60.0-200.0); Potassium 4.1 mmol/L (3.5-5.5)
[2019-09-11 18:54] LABS: T4, Free (Free Thyroxine) 1.2 ng/dL (0.80-1.80)
== END | disposition home or self-care (01) ==
LOC: LABWHC1 11:27
PROVIDERS: ATTEND Internal Medicine Cardiovascular Disease
DX: Z13.220 Encounter for screening for lipoid disorders (principal); R00.2 Palpitations; R55 Syncope and collapse; R06.09 Other forms of dyspnea; F17.210 Nicotine dependence, cigarettes, uncomplicated; Z82.49 Family history of ischemic heart disease and other diseases of the circulatory system
CPT/HCPCS: 36415; 80048; 84439; 84443; 84450; 84460; 85025

== ENCOUNTER → 2019-09-28 | Outpatient (CLI) | payer MEDICARE, BC ==
[2019-09-28 16:08] LABS: African American GFR (CKD) >90 (>60 ml/min/1.73 sqM); Blood Urea Nitrogen 17 mg/dL (7-17); Non-African American GFR(CKD) >90 (>60 ml/min/1.73 sqM)
--- NOTE | 2019-09-29 21:25 | CT ---
EXAMINATION TYPE: CT chest w con DATE OF EXAM: 09/28/2019 COMPARISON: Chest x-ray 03/20/2018 HISTORY: abnormal weight loss CT DLP: 165 mGycm Automated exposure control for dose reduction was used. CONTRAST: CT scan of the chest is performed with IV Contrast, patient injected with 100 mL of Isovue 300. FINDINGS: LUNGS: The lungs are grossly clear, there is no concerning parenchymal mass or nodule identified. Emp hysematous changes are present. Apical pleural thickening is noted. There is no pleural effusion or pneumothorax seen. The tracheobronchial tree is patent. MEDIASTINUM: There are no greater than 1 cm hilar or mediastinal lymph nodes. No pericardial effusi on is seen. AORTA: No additional significant abnormality is seen. OTHER: Multiple cystic foci are scattered within the liver. The colon is distended, shows thickened wall and there is retained fecal debris. IMPRESSION: Correlate for fecal stasis, consider distal bowel obstruction and colitis, consider bowel surveillance if this has not been performed. Emphysema. Low dense foci within the liver likely repr esent cysts.
== END | disposition home or self-care (01) ==
LOC: RADCTMAIN 15:29
PROVIDERS: ATTEND Family Medicine
DX: J43.9 Emphysema, unspecified (principal)
CPT/HCPCS: 82565; 84520; 71260; 36415; Q9967

== ENCOUNTER 2019-10-05 08:34 | Day surgery (SDC) | payer MEDICARE, BC ==
[2019-10-03 15:33] VITALS: BMI 18.7
[2019-10-05 09:30] VITALS: RESP 16; TEMP 97.2
[2019-10-05] MEDS ORDERED: LIDOCAINE 1% INJ 10MG/ML (20 ML MDV) ONE (10:05)
[2019-10-05] MEDS ORDERED: PROPOFOL 10 MG/ML 20 ML VIAL IV ONE (10:05)
--- NOTE | 2019-10-05 10:13 | P.PCN ---
Date of Procedure: 10/05/19 Procedure(s) Performed: BRIEF HISTORY: Patient is a 64-year-old, pleasant, white female scheduled for an upper endoscopy as a part of evaluation of severe iron deficiency anemia. She was recently hospitalized and received 2 units of blood transfusion and hemoglobin of 6 g/dL. she has history of ulcerative colitis and is maintained on Humira injections.. PROCEDURE PERFORMED: Esophagogastroduodenoscopy with biopsy PREOPERATIVE DIAGNOSIS: Iron deficiency anemia. IV sedation per anesthesia. PROCEDURE: After informed consent was obtained, the patient was brought into the endoscopy unit. IV sedation was administered by Anesthesia under continuous monitoring. Initially the Olympus GIF-140 video endoscope was inserted into the mouth. Esophagus intubated without any difficulty. It was gradually advanced into the stomach and duodenum and carefully examined. The bulb and the second part of the duodenum appeared normal. Biopsies were done from the duodenum to rule out celiac disease. The scope at this time was withdrawn to the stomach, adequately insufflated with air, and upon careful examination, mucosa of the antrum, had mild gastritis and biopsies were done from this area. The body, cardia and the fundus appeared normal. The scope was then withdrawn into the esophagus. The GE junction was located at 39 cm from the incisors. The esophagus appeared normal. There were no erosions or ulcerations seen and the patient tolerated the procedure well. IMPRESSION: 1. Mild antral gastritis 2. No evidence of esophagitis or peptic ulcer disease. RECOMMENDATIONS: The findings of this examination were discussed with the patient as well as a family. She was advised to follow with the biopsy results. she will continue with iron supplements daily and she'll be seen in office in 2-3 weeks
[2019-10-05 10:33] VITALS: BP 142/75; PULSE 79
== END 2019-10-05 10:57 | disposition home or self-care (01) ==
LOC: ORWHC2ENDO 08:34
PROVIDERS: ATTEND Internal Medicine Gastroenterology
DX: K29.51 Unspecified chronic gastritis with bleeding (principal); K31.9 Disease of stomach and duodenum, unspecified; D50.9 Iron deficiency anemia, unspecified; K51.90 Ulcerative colitis, unspecified, without complications; E78.5 Hyperlipidemia, unspecified; K08.89 Other specified disorders of teeth and supporting structures; M19.90 Unspecified osteoarthritis, unspecified site; F31.9 Bipolar disorder, unspecified; K21.9 Gastro-esophageal reflux disease without esophagitis; Z79.899 Other long term (current) drug therapy; Z79.1 Long term (current) use of non-steroidal anti-inflammatories (NSAID); Z88.8 Allergy status to other drugs, medicaments and biological substances; Z88.6 Allergy status to analgesic agent
CPT/HCPCS: 43239; J2001; J2704; 88305

== ENCOUNTER → 2019-10-18 | Outpatient (CLI) | payer MEDICARE, BC ==
[2019-10-18 11:23] LABS: African American GFR (CKD) >90 (>60 ml/min/1.73 sqM); Blood Urea Nitrogen 15 mg/dL (7-17); Non-African American GFR(CKD) 84 (>60 ml/min/1.73 sqM)
--- NOTE | 2019-10-18 12:53 | CT ---
EXAMINATION TYPE: CT abdomen pelvis w con DATE OF EXAM: 10/18/2019 COMPARISON: 09/08/2018 HISTORY: 50lb weight loss over past [address] DLP: 335 mGycm CONTRAST: CT scan of the abdomen and pelvis is performed with Oral Contrast and with IV Contrast, patient injec jamari with 100 mL of Isovue M300. FINDINGS: LUNG BASES-: No visible nodule. No infiltrate. LIVER/GB: No calcified gallstones. Multiple simple hepatic cysts are noted. Biliary tree is of norm al caliber. PANCREAS: No inflammation. No distinct mass. SPLEEN: No splenic enlargement. No lesion seen. ADRENALS: No nodule. No thickening. KIDNEYS/BLADDER: No hydronephrosis. No nephrolithiasis. No distinct renal mass. Urinary bladder g rossly unremarkable. BOWEL: Normal appendix. Diffuse wall thickening involving the colon from the distal transverse colon through the proximal sigmoid colon. This may reflect infectious or inflammatory colitis. Correlate cl inically. The remainder of the colon and small bowel are of normal caliber and wall thickness. GENITAL ORGANS: No gross abnormality. LYMPH NODES: No greater than 1cm abdominal or pelvic lymph nodes are appreciated. AORTA: No significant abnormality. OSSEOUS STRUCTURES: No significant abnormality is seen. OTHER: No significant additional abnormality is seen. IMPRESSION: 1. Diffuse wall thickening involving the colon from the distal transverse colon through the proximal sigmoid colon. This may reflect infectious or inflammatory colitis. Correlate clinically.
== END | disposition home or self-care (01) ==
LOC: RADCTMAIN 10:37
PROVIDERS: ATTEND Physician Assistant
DX: R93.3 Abnormal findings on diagnostic imaging of other parts of digestive tract (principal); R63.4 Abnormal weight loss
CPT/HCPCS: 82565; 84520; 74177; 36415; Q9967 ×2

== ENCOUNTER → 2019-10-25 | Outpatient (CLI) | payer MEDICARE, BC ==
--- NOTE | 2019-10-25 16:00 | NM ---
EXAMINATION TYPE: NM bone scan whole body DATE OF EXAM: 10/25/2019 COMPARISON: NONE HISTORY: Disorder of the bone Delayed whole-body scanning was performed following the injection of 23.9 mCi Tc 99m MDP. Images wer e acquired 3 hours post injection. FINDINGS: There is focal uptake at the right carpal metacarpal junction likely related to degenerative change. Milder degenerative changes at the left wrist. There is mild uptake along the left and right posterior cervical spine most likely degenerative in na ture. Suspicious focal uptake is not identified. No suspicious photopenic defects are evident. No focal met abolic foci to suggest metastatic disease is identified. IMPRESSION: 1. There appears to be degenerative change in the bilateral wrists. Some degenerative change may be i n the cervical spine. 2. Radiotracer distribution otherwise appears unremarkable.
== END | disposition home or self-care (01) ==
LOC: RADNMMAIN 08:55
PROVIDERS: ATTEND Family Medicine
DX: M89.9 Disorder of bone, unspecified (principal)
CPT/HCPCS: 78306; A9503

== ENCOUNTER → 2020-10-31 | Day surgery (SDC) | payer MEDICARE, BC ==
[2020-10-30 08:29] VITALS: BMI 16.9
[~2020-10-31] MED LIST changes: +LIDOCAINE 1% (10MG/ML) FOR IV START INTRADERMA ONE; +LIDOCAINE 1% INJ 10MG/ML (20 ML MDV) ONE; +PROPOFOL 10 MG/ML 20 ML VIAL IV ONE
[2020-10-31 12:26] VITALS: TEMP 97.8
--- NOTE | 2020-10-31 14:40 | P.PCN ---
Date of Procedure: 10/31/20 Procedure(s) Performed: BRIEF HISTORY: Patient is a 65-year-old, pleasant, 8 female scheduled for an upper endoscopy as part of evaluation of the epigastric pain for the last few months duration.. PROCEDURE PERFORMED: Esophagogastroduodenoscopy with biopsy. PREOPERATIVE DIAGNOSIS: Chronic epigastric pain of 6 months duration. IV sedation per anesthesia. PROCEDURE: After informed consent was obtained, the patient was brought into the endoscopy unit. IV sedation was administered by Anesthesia under continuous monitoring. Initially the Olympus GIF-140 video endoscope was inserted into the mouth. Esophagus intubated without any difficulty. It was gradually advanced into the stomach and duodenum and carefully examined. The bulb and the second part of the duodenum appeared normal. The scope at this time was withdrawn to the stomach, adequately insufflated with air, and upon careful examination, mucosa of the antrum, body, cardia and the fundus appeared normal. The scope was then withdrawn into the esophagus. The GE junction was located at 39 cm from the incisors. The esophagus appeared normal. There were no erosions or ulcerations seen and the patient tolerated the procedure well. IMPRESSION: 1. Mild antral gastritis. 2. No evidence of esophagitis or peptic ulcer disease. RECOMMENDATIONS: The findings of this examination were discussed with the patient well as her family. She was advised to follow with the biopsy results. She will continue with Her medications and she'll be seen in office in 2-3 weeks..
[2020-10-31 14:46] VITALS: BP 118/66; PULSE 83; RESP 17
== END ==
LOC: ORWHC2ENDO 11:40
PROVIDERS: ATTEND Internal Medicine Gastroenterology
DX: K29.70 Gastritis, unspecified, without bleeding (principal); K31.9 Disease of stomach and duodenum, unspecified; M79.7 Fibromyalgia; K21.9 Gastro-esophageal reflux disease without esophagitis; M19.90 Unspecified osteoarthritis, unspecified site; Z79.891 Long term (current) use of opiate analgesic; Z79.1 Long term (current) use of non-steroidal anti-inflammatories (NSAID); Z88.8 Allergy status to other drugs, medicaments and biological substances; Z79.899 Other long term (current) drug therapy
CPT/HCPCS: 88305; 43239; J2001; J2704

== ENCOUNTER → 2021-06-04 | Outpatient (CLI) | payer MEDICARE, BC | END | disposition home or self-care (01) | LOC: LABWHC1 14:05 | PROVIDERS: ATTEND Family Medicine | DX: U07.1 COVID-19 (principal) | CPT/HCPCS: U0003; U0005 ==

== ENCOUNTER → 2024-06-19 | Outpatient (CLI) | payer MEDICARE, BC ==
[2024-06-19 18:04] LABS: Basophils # (A) 0.05 X 10*3/uL (0.00-0.10); Basophils % (A) 0.8 %; Eosinophils # (A) 0.22 X 10*3/uL (0.04-0.35); Eosinophils % (A) 3.5 %; HCT 42.4 % (37.2-46.3); HGB 13.3 g/dL (12.0-15.0); Lymphocytes # (A) 2.84 X 10*3/uL (0.90-5.00); Lymphocytes % (A) 44.6 %; MCHC 31.4 g/dL (32.0-37.0); MCV 95.7 FL (80.0-97.0); Mean Platelet Volume 9.4 FL (9.5-12.2); Monocytes # (A) 0.51 X 10*3/uL (0.20-1.00); NRBC Per 100 WBC 0 X 10*3/uL (0.00-0.01); Neutrophils # (A) 2.74 X 10*3/uL (1.80-7.70); Neutrophils % (A) 42.9 %; Platelet Count 253 X 10*3/uL (140-440); RBC 4.43 X 10*6/uL (4.10-5.20); RDW 14.6 % (11.5-14.5); WBC 6.37 X 10*3/uL (4.50-10.00)
[2024-06-19 19:01] LABS: ALT 18 U/L (8-44); AST 20 U/L (13-35); Albumin 4.2 g/dL (3.8-4.9); Albumin/Globulin Ratio 1.56 Ratio (1.60-3.17); Alkaline Phosphatase 40 U/L (41-126); BUN/Creat Ratio 21.12 Ratio (12.00-20.00); Blood Urea Nitrogen 16.9 mg/dL (9.0-27.0); Chloride 106 mmol/L (96-109); Globulin 2.7 g/dL (1.6-3.3); Glucose 104 mg/dL (70-110); Potassium 4.2 mmol/L (3.5-5.5); Sodium 142 mmol/L (135-145); Total Bilirubin <0.2 mg/dL (0.3-1.2); Total Protein 6.9 g/dL (6.2-8.2)
== END | disposition home or self-care (01) ==
LOC: LABWHC1 12:09
PROVIDERS: ATTEND Internal Medicine Gastroenterology
DX: K51.30 Ulcerative (chronic) rectosigmoiditis without complications (principal)
CPT/HCPCS: 36415; 80053; 85025

== ENCOUNTER → 2024-12-13 | Outpatient (CLI) | payer MEDICARE, BC ==
[2024-12-13 18:58] LABS: Basophils # (A) 0.02 X 10*3/uL (0.00-0.10); Basophils % (A) 0.3 %; Eosinophils # (A) 0 X 10*3/uL (0.04-0.35); Eosinophils % (A) 0 %; HCT 42.6 % (37.2-46.3); HGB 13.4 g/dL (12.0-15.0); Lymphocytes # (A) 1.14 X 10*3/uL (0.90-5.00); Lymphocytes % (A) 16.3 %; MCH 30.2 pg (27.0-32.0); MCHC 31.5 g/dL (32.0-37.0); MCV 96.2 FL (80.0-97.0); Mean Platelet Volume 8.6 FL (9.5-12.2); Monocytes # (A) 0.27 X 10*3/uL (0.20-1.00); Monocytes % (A) 3.9 %; NRBC Per 100 WBC 0 X 10*3/uL (0.00-0.01); Neutrophils % (A) 78.8 %; Platelet Count 338 X 10*3/uL (140-440); RBC 4.43 X 10*6/uL (4.10-5.20); RDW 14.2 % (11.5-14.5); WBC 6.98 X 10*3/uL (4.50-10.00)
[2024-12-13 19:33] LABS: ALT 23 U/L (8-44); AST 16 U/L (13-35); Albumin 4.2 g/dL (3.8-4.9); Albumin/Globulin Ratio 1.68 Ratio (1.60-3.17); Alkaline Phosphatase 43 U/L (41-126); BUN/Creat Ratio 26.43 Ratio (12.00-20.00); Blood Urea Nitrogen 18.5 mg/dL (9.0-27.0); Calcium 9.3 mg/dL (8.7-10.3); Carbon Dioxide 26.6 mmol/L (21.6-31.8); Chloride 103 mmol/L (96-109); Globulin 2.5 g/dL (1.6-3.3); Glucose 224 mg/dL (70-110); Potassium 4.6 mmol/L (3.5-5.5); Sodium 141 mmol/L (135-145); Total Bilirubin <0.2 mg/dL (0.3-1.2); Total Protein 6.7 g/dL (6.2-8.2)
== END | disposition home or self-care (01) ==
LOC: LABWHC1 14:27
PROVIDERS: ATTEND Internal Medicine Gastroenterology
DX: K51.30 Ulcerative (chronic) rectosigmoiditis without complications (principal)
CPT/HCPCS: 36415; 80053; 85025

== ENCOUNTER 2025-02-15 09:46 | Day surgery (SDC) | payer MEDICARE, BC ==
[2025-02-14 12:38] VITALS: BMI 20.6
[~2025-02-15 09:46] MED LIST changes: -LACTATED RINGERS 1,000 ML IV SCH; -LIDOCAINE 1% (10MG/ML) FOR IV START INTRADERMA ONE; +LIDOCAINE 1% (10MG/ML) FOR IV START INTRADERMA PRN; -LIDOCAINE 1% INJ 10MG/ML (20 ML MDV) ONE; -PROPOFOL 10 MG/ML 20 ML VIAL IV ONE
[2025-02-15] MEDS: IV FLUID CONTINUATION 1,000 ML IV ONE (10:42)
[2025-02-15] MEDS: LACTATED RINGERS 1,000 ML IV SCH (10:59)
[2025-02-15 11:02] VITALS: RESP 16; TEMP 97
[2025-02-15] MEDS ORDERED: LIDOCAINE 2% (PF) 20 MG/ML 5 ML VIAL ONE (11:43)
[2025-02-15] MEDS ORDERED: PROPOFOL 10 MG/ML 20 ML VIAL IV ONE (11:43)
--- NOTE | 2025-02-15 12:04 | P.PCN ---
Date of Procedure: 02/15/25 Procedure(s) Performed: BRIEF HISTORY: Patient is a 69-year-old pleasant white female scheduled for an elective colonoscopy as a part of screening for longstanding history of ulcerative colitis diagnosed in 2018. She is maintained on Humira injections every 2 weeks and she remains in clinical remission. PROCEDURE PERFORMED: Colonoscopy with biopsy. PREOPERATIVE DIAGNOSIS:. Screening for longstanding history of ulcerative colitis IV sedation per Anesthesia. PROCEDURE: After informed consent was obtained, the patient, was brought into the endoscopy unit. IV sedation was administered by Anesthesia under continuous monitoring. Digital rectal examination was normal. Initially the Olympus CF-160 flexible video colonoscope was then inserted in the rectum, gradually advanced into the sigmoid colon and further advancement was not possible because of acute angulation in this area. The scope was removed and a pediatric colonoscopy then introduced into the rectum and with gentle manipulation was advanced into the cecum cecum without any difficulty. Careful examination was performed as the scope was gradually being withdrawn. Ileocecal valve and the appendiceal orifice were visualized and appeared normal. Prep was excellent. Mucosa of the cecum, ascending colon, transverse colon, descending colon, sigmoid colon, and rectum appeared normal. Random biopsies were done from the colon to rule out dysplasia. Retroflexion was performed in the rectum and no lesions were seen. The patient tolerated the procedure well. IMPRESSION: Normal-appearing colon from rectum to cecum with no evidence of active colitis or colorectal neoplasia. RECOMMENDATIONS: Findings of this examination were discussed with the patient. She was advised to follow-up with the biopsy results. If there is no evidence of dysplasia she can have repeat colonoscopy in 2 to 3 years. Continue with Humira injections every 2 weeks and follow-up in the office in 3 months
[2025-02-15 12:25] VITALS: BP 141/81; PULSE 84
== END 2025-02-15 12:41 ==
LOC: ORWHC2ENDO 09:46
PROVIDERS: ATTEND Internal Medicine Gastroenterology
DX: Z12.11 Encounter for screening for malignant neoplasm of colon (principal); K51.30 Ulcerative (chronic) rectosigmoiditis without complications; E78.5 Hyperlipidemia, unspecified; M79.7 Fibromyalgia; K21.9 Gastro-esophageal reflux disease without esophagitis; F31.9 Bipolar disorder, unspecified; F17.200 Nicotine dependence, unspecified, uncomplicated; Z79.620 Long term (current) use of immunosuppressive biologic; Z79.52 Long term (current) use of systemic steroids; Z79.899 Other long term (current) drug therapy; Z88.6 Allergy status to analgesic agent; Z88.8 Allergy status to other drugs, medicaments and biological substances
CPT/HCPCS: 88305; 45380; J2704; J2003